=== PATIENT | male | born 2000 | race Caucasian/White ===

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

== ENCOUNTER → 2018-05-04 | Outpatient (CLI) | payer BC | LOC: EDSTATUS 10:27 → BMCIMAGING 14:00 → MERGE 14:16 | PROVIDERS: ATTEND Family Medicine | DX: S69.92XA Unspecified injury of left wrist, hand and finger(s), initial encounter (principal) ==